=== PATIENT | female | born 1955 | race Caucasian/White ===

== ENCOUNTER 2025-02-26 10:56 | Outpatient (REF) | payer OTHER, SELFPAY ==
--- OUTSIDE RECORDS SUMMARY | 2025-02-26 12:18 | XMS_ITS | Clinical Summary ---
Author Organization [facility] Address [address] [place] [address] Phone Care Team Providers Care Tube Bender Name Role Phone Alvina Berger MD Primary Care Provider Social History Tobacco Use Types Packs/Day Years Used Date Smoking Tobacco: Never Assessed Comments Unknown Sex and Gender Information Value Date Recorded Sex Assigned at Not on file Legal Sex Female 9:03 PM EST Gender Identity Not on file Sexual Orientation Not on file Plan of Treatment Health Maintenance Due Date Last Done Comments Breast Cancer Screening 1957 DTaP,Tdap,and Td Vaccines (1 - Tdap) 1976 Cervical Cancer Screening: HPV 1978 Pneumococcal Vaccine: 50+ Ye ars (1 of 1 - PCV) 2007 Zoster Vaccines (1 of 2) 2007 Colorectal Cancer Screening: Colonoscopy 02/28/2024 Falls Risk Assessment 02/28/2024 Hepatitis C Screening 02/28/2024 Osteoporosis Screening (Bone Density Screening) 02/28/2024 Social Influencers of Health Screening 02/28/2024 COVID-19 Vaccine ( - 2023-2 5 season) 2024 Depression Screening 08/08/2024 Influenza Vaccine (#1) 2025 RSV Immunization Adult Patie nts (1 - 1-dose 75+ series) 2032 HIB Vaccines Aged Out No longer eligi ble based on patient's age to complete this topic HPV Vaccines Aged Out No longer eligi ble based on patient's age to complete this topic Hepatitis A Vaccines Aged Out No long er eligible based on patient's age to complete this topic Hepatitis B Vaccines Aged Out No long er eligible based on patient's age to complete this topic IPV Vaccines Aged Out No longer eligi ble based on patient's age to complete this topic MMR Vaccines Aged Out No longer eligi ble based on patient's age to complete this topic Meningococcal ACWY Vaccine Aged Out N o longer eligible based on patient's age to complete this topic Meningococcal B Vaccine Aged Out No l onger eligible based on patient's age to complete this topic RSV Immunization Patients Un rosendo 20 months Aged Out No longer eligible b ased on patient's age to complete this topic Varicella Vaccines Aged Out No longer eligible based on patient's age to complete this topic Care Teams Tube Bender Relationship Specialty Start Date End Date Alvina Berger MD [address] PCP - General Internal Medicine 10/30/13
--- OUTSIDE RECORDS SUMMARY | 2025-02-26 12:18 | XMS_ITS | Patient Health Record ---
Author Organization [facility] Address [address] [address] Care Team Providers Care Rfid Engineer Name Role Phone VALENTINE ORTIZ, YURI Primary Care Provider Unav ailLOLY Osman Unavailable [phone] Allergies No Known Allergies Reason For Referral No Information Medications Medication SIG (Take, Route, Fr equency, Duration) Notes Start Date End Date Status Multivitamin - 1 tablet Orally Once a day; Duration: 30 day(s) Active Social History Tobacco Use: Social History Observation Description Date Details (start date - stop date) Never Smoker NA - NA Tobacco Use/Smoking Question Answer Notes Are you a nonsmoker Alcohol Screen (Audit-C) Question Answer Notes Did you have a drink contain ing alcohol in the past year? Yes How often did you have a dri nk containing alcohol in the past year? 2 to 4 times a month (2 points) How many drinks did you have on a typical day when you were drinking in the past year? 1 or 2 drinks (0 point) How often did you have 6 or more drinks on one occasion in the past year? Never (0 point) Points 2 Interpretation Negative Vital Signs Temperature 98.0 degrees Fahrenheit 02/12/2025 Blood pressure diastolic 82 mm Hg 02/12/2025 Height 5 ft 2.5 in in 02/12/2025 Blood pressure systolic 144 mm Hg 02/12/2025 Weight 142 lbs 02/12/2025 BMI 25.56 kg/m2 02/12/2025 Encounters Encounter Location Date Provider Diagnosis [facility] [place] [address] [employer] [address] [address] 02/12/2025 LOLY MATOS Encounter for gynecological examination (general) (routine) without abnormal findings Z01.419 and Encounter for screening mammogram for malignant neoplasm of breast Z12.31 Assessments Encounter Date Diagnosis (ICD Code) Assessment Notes Treatment Notes Treatment Clinical Notes Section Notes 02/12/2025 Encounter for gynecological examination (general) (routine) without abnormal findings (ICD-10 - Z01.419) During the visit, the following areas of concern were addressed: Discussed stopping cervical cancer screening as per ASCCP guidelines. Advised continued annual pelvic exams. Patient encouraged to increase her level of exercise. SBE technique encouraged/tau ght. Patient reminded when annual mammogram is due. Patient encouraged to keep colon screening up to date. Advised to see PCP for further evaluation of the rash. 02/12/2025 Encounter for screening mammogram for malignant neoplasm of breast (ICD-10 - Z12.31) Plan Of Treatment Pending Test Test Name Order Date MM Digital Screening Mammogram 3D 2020 MM Digital Screening Mammogram 3D 2021 MM Digital Screening Mammogram 3D 2022 MM Digital Screening Mammogram 3D 2023 MM Digital Screening Mammogram 3D 2024 Next Appt Details Provider Name:LOLY Araujo, 02/18/2026 10:30:00 AM, [address] [facility], [address], [place], [address], Insurance Providers Payer Name Payer Address Payer Phone Subscriber Number Group Number Insured Name Patient Relationship to Insured Coverage Start Date Coverage End Date [facility] [address] [place] [address] [id number] KATHY TERAN Self - patient is the insured Medical (General) History Surgical History Surgery Date(Month/Year) Hospitalization History Reason Date(Month/Year) FACIAL CELLULITIS 2008
--- OUTSIDE RECORDS SUMMARY | 2025-02-26 12:19 | XMS_ITS | Data Portability ---
Author Organization [facility], Main Office Address [address] [facility] [address] [place] [id number] Care Team Providers Care Shroudman Name Role Phone SIENA MORENO [employer] KILEY MARTINS Primary Care Provider [facility] Networking Specialist Assessment Encounter Date Assessment Date Assessment LastModified by Organization Details LastModified Time 02/15/2025 02/15/2025 Discussed with patient the signs/symptom s warranted for a return to office visit and/or an ER visit. Patient understood and agreed with the plan. Not available 02/15/2025 10:26:09 Plan of Treatment Reminders Order Date Submit Date Provider Last Modified By Organization Details Last Modified Time Details Appointments URGENT 2024 11:30A M Jb Cuenca PA-C Not available Not available Not available Lab lipid panel, serum 2024 025 [facility], [address] [place], [address], 01/16/2025 06:07:36 BMP, serum or plasma 2024 025 [facility], [address], [place], [address], 01/16/2025 06:07:35 CBC w/ auto diff 2024 025 [facility], [address], [place], [address], 01/16/2025 06:07:34 TSH, ultra- sensit fanny, serum 2024 025 [facility], [address], [place], [address], 01/16/2025 06:07:36 lipid panel, serum 2022 023 [facility], [address], [address], [place], [address], 04/19/2023 16:10:42 BMP, serum or plasma 2022 023 [facility], [address], [address], [place], [address], 04/19/2023 16:10:41 CBC w/ auto diff 2022 023 [facility], [address], [address], [place], [address], 04/19/2023 16:18:26 TSH, serum or plasma 2022 023 [facility], [address], [address], [place], [address], 04/19/2023 16:10:43 choles terol, total, serum 2021 022 [facility], [address], [address], [place], [address], 04/15/2022 16:44:47 LDL, serum 2021 022 [facility], [address], [address], [place], [address], 04/15/2022 16:44:48 BMP, serum or plasma 2021 022 [facility], [address], [address], [place], [address], 04/15/2022 16:44:46 Referral audiol ogist referr al 2024 025 [email or web address], [address] [place], [address], 01/09/2025 11:26:41 dermat ologis t referr al - rash x 2 month, using triamc inolon e with relief of itchin g but not the rash whih is now spread ing 2021 022 [email or web address] Not available 07/20/2022 10:00:26 gastro entero logist referr al - due for screen ing colono scopy 2021 022 [email or web address] Siena Moreno MD, [address] [facility] [address], [place], [address], 05/06/2022 14:26:29 Procedures colono scopy screen ing (PROC) 2022 023 [email or web address] Not available 01/17/2024 09:15:56 colono scopy proced ure (PROC) 2021 022 [email or web address] Not available 04/15/2022 11:54:53 Surgeries None record ed. Imaging MAMMO, screen ing, bilate ral 2024 025 [email or web address] Not available 01/08/2025 11:31:44 bone densit y 2022 023 [email or web address] [facility], [address] [place], [address], 10/31/2023 11:48:07 MAMMO, screen ing, bilate ral 2022 023 [facility], [address] [place], [address], 09/09/2023 08:22:24 Medication Orders Bactri m DS 800 mg-160 mg tablet 2024 025 [facility] #1972, [address] [facility], [place], [address], 02/15/2025 10:28:26 [email or web address] orlando 2 % topica l ointme nt 2024 025 [facility]acy #1972, [address] [place], [address], 02/15/2025 10:28:26 Bactri m DS 800 mg-160 mg tablet [email or web address]/Pharmacy [facility], [address] [place] [address], [address], 04/19/2023 10:26:14 mupiro orlando 2 % topica l ointme nt [email or web address]/Pharmacy #[facility], [address] [place], [address], 04/19/2023 10:26:08 triamc inolon e aceton ministerio 0.1 % topica l ointme nt [email or web address]/Pharmacy #[facility], [address] [place] [address], [address], 04/19/2023 10:26:19 Patient TargetsNo targets recorded. Patient Instructions Encounter Date Encounter Id Patient Instructions Last Modified By Organization Details Last Modified Time 06/29/2022 [id number] folliculitis: care instructions [email or web address] Not available 06/29/2022 11:06:46 call or return for worsening or concerns [email or web address] Not available 06/29/2022 11:06:59 04/19/2023 [id number] well visit, over 65: care instructions Not available 04/19/2023 10:49:43 preventing falls : care instructions Not available 04/19/2023 10:49:43 medical record request* Not available 04/20/2023 13:51:10 01/08/2025 [id number] hearing loss: care instructions Not available 01/08/2025 11:25:56 medical record request* Not available 01/09/2025 11:11:49 02/15/2025 [id number] folliculitis: care instructions Not available 02/15/2025 10:28:25 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 Referral for Screening for malignant neoplasm of colon due for screening colonoscopy Referring Physician: Alvina Berger, [facility], Encounter Date: 04/15/2022 Medical Specialist Referral for F olliculitis rash x 2 month, using triamcinolone with relief of itching but not the rash whih is now spreading Referring Physician: Lisa Sahu, [facility], Encounter Date: 06/29/2022 Medical Superintendent Referral for Sen sorineural hearing loss of bilateral ears Referring Physician: Kiley Martins, [facility], Encounter Date: 01/08/2025 Results Created Date Observation Date Name Description Value Unit Range Abnormal Flag Note LastModifiedBy Organization Detail LastModifiedTime 04/15/2004/15/2022 BASIC METAB OLIC PANEL glucose 86 mg/dL (70-99 ) Not Available [facility] (Centralized Electronic Ordering - All Locations) Patient Can Go To The Location Of Their Choice, [id number] 04/15/2022 16:44:46 04/15/2004/15/2022 BASIC METAB OLIC PANEL BUN 14 mg/dL (8-23) Not Available [facility] (Centralized Electronic Ordering - All Locations) Patient Can Go To The Location Of Their Choice, [id number] 04/15/2022 16:44:46 04/15/2004/15/2022 BASIC METAB OLIC PANEL creatinine 0.7 mg/dL (0.5-1 .0) Not Available [facility] (Centralized Electronic Ordering - All Locations) Patient Can Go To The Location Of Their Choice, 04/15/2022 16:44:46 04/15/2004/15/2022 BASIC METAB OLIC PANEL sodium 142 mmol/ L (133-1 45) Not Available [facility] (Centralized Electronic Ordering - All Locations) Patient Can Go To The Location Of Their Choice, [id number] 04/15/2022 16:44:46 04/15/2004/15/2022 BASIC METAB OLIC PANEL potassium 4.4 mmol/ L (3.6-5 .2) Not Available [facility] (Centralized Electronic Ordering - All Locations) Patient Can Go To The Location Of Their Choice, 04/15/2022 16:44:46 04/15/2004/15/2022 BASIC METAB OLIC PANEL chloride 101 mmol/ L (98-10 7) Not Available [facility] (Centralized Electronic Ordering - All Locations) Patient Can Go To The Location Of Their Choice, 04/15/2022 16:44:46 04/15/2004/15/2022 BASIC METAB OLIC PANEL bicarbonate 32 mmol/ L (22-29 ) high Not Available [facility] (Centralized Electronic Ordering - All Locations) Patient Can Go To The Location Of Their Choice, 04/15/2022 16:44:46 04/15/2004/15/2022 BASIC METAB OLIC PANEL anion gap 9 (4-17) Not Available [facility] (Centralized Electronic Ordering - All Locations) Patient Can Go To The Location Of Their Choice, 04/15/2022 16:44:46 04/15/2004/15/2022 BASIC METAB OLIC PANEL calcium 10.3 mg/dL (8.6-1 0.5) Not Available [facility] (Centralized Electronic Ordering - All Locations) Patient Can Go To The Location Of Their Choice, 04/15/2022 16:44:46 04/15/2004/15/2022 BASIC METAB OLIC PANEL estimated GFR creatinine 97 mL/mi n/1.7 3_M2 Creat inine based estim ated glome rular filtr ation (eGFR ) in adult s is calcu lated using the Natio nal Kidne y Found ation recom sera d 2020 CKD-E PI equat ion. Estim ates GFR from serum creat inine , age and sex. Not Available [facility] (Centralized Electronic Ordering - All Locations) Patient Can Go To The Location Of Their Choice, 04/15/2022 16:44:46 04/15/2004/15/2022 ERICA STERO L, TOTAL cholesterol, total 175 mg/dL (<200) Not Available [facility] ([facility] Order[facility] - All Locations) Patient Can Go To The Location Of Their Choice, 04/15/2022 16:44:47 04/15/2004/15/2022 LDL ERICA STERO L, DIREC T LDL cholesterol, direct 82 mg/dL (<130) Not Available [facility] ([facility] Ordering - All Locations) Patient Can Go To The Location Of Their Choice, 04/15/2022 16:44:48 04/19/2004/19/2023 BASIC METAB OLIC PANEL glucose 88 mg/dL (70-99 ) Not Available [facility] (Centralized Electronic Ordering - All Locations) Patient Can Go To The Location Of Their Choice, 04/19/2023 16:10:41 04/19/2004/19/2023 BASIC METAB OLIC PANEL BUN 12 mg/dL (8-23) Not Available [facility] (Centralized Electronic Ordering - All Locations) Patient Can Go To The Location Of Their Choice, 04/19/2023 16:10:41 04/19/2004/19/2023 BASIC METAB OLIC PANEL creatinine 0.7 mg/dL (0.5-1 .0) Not Available [facility] (Centralized Electronic Ordering - All Locations) Patient Can Go To The Location Of Their Choice, 04/19/2023 16:10:41 04/19/2004/19/2023 BASIC METAB OLIC PANEL sodium 138 mmol/ L (133-1 45) Not Available [facility] (Centralized Electronic Ordering - All Locations) Patient Can Go To The Location Of Their Choice, 04/19/2023 16:10:41 04/19/2004/19/2023 BASIC METAB OLIC PANEL potassium 4.4 mmol/ L (3.6-5 .2) Not Available [facility] (Centralized Electronic Ordering - All Locations) Patient Can Go To The Location Of Their Choice, 04/19/2023 16:10:41 04/19/2004/19/2023 BASIC METAB OLIC PANEL chloride 102 mmol/ L (98-10 7) Not Available [facility] (Centralized Electronic Ordering - All Locations) Patient Can Go To The Location Of Their Choice, 04/19/2023 16:10:41 04/19/2004/19/2023 BASIC METAB OLIC PANEL bicarbonate 27 mmol/ L (22-29 ) Not Available [facility] ([facility]ized Electronic Ordering - All Locations) Patient Can Go To The Location Of Their Choice, 04/19/2023 16:10:41 04/19/2004/19/2023 BASIC METAB OLIC PANEL anion gap 9 (4-17) Not Available [facility] (Central[facility] Electronic Ordering - All Locations) Patient Can Go To The Location Of Their Choice, 04/19/2023 16:10:41 04/19/2004/19/2023 BASIC METAB OLIC PANEL calcium 10.0 mg/dL (8.6-1 0.5) Not Available [facility] ([facility] Ordering - All Locations) Patient Can Go To The Location Of Their Choice, 04/19/2023 16:10:41 04/19/2004/19/2023 BASIC METAB OLIC PANEL estimated GFR creatinine 94 mL/mi n/1.7 3_M2 Creat inine based estim ated glome rular filtr ation (eGFR ) in adult s is calcu lated using the Natio nal Kidne y Found ation recom sera d 2020 CKD-E PI equat ion. Estim ates GFR from serum creat inine , age and sex. Not Available [facility] (Centralized Electronic Ordering - All Locations) Patient Can Go To The Location Of Their Choice, 04/19/2023 16:10:41 04/19/2004/19/2023 LIPID PANEL cholesterol, total 190 mg/dL (<200) Not Available [facility] ([facility] Order[facility] - All Locations) Patient Can Go To The Location Of Their Choice, 04/19/2023 16:10:42 04/19/2004/19/2023 LIPID PANEL triglyceride 96 mg/dL (<150) Not Available [facility] ([facility] - All Locations) Patient Can Go To The Location Of Their Choice, 04/19/2023 16:10:42 04/19/2004/19/2023 LIPID PANEL HDL chol 73 mg/dL (>39) Not Available [facility] (Centralized Electronic Ordering - All Locations) Patient Can Go To The Location Of Their Choice, 04/19/2023 16:10:42 04/19/2004/19/2023 LIPID PANEL LDL cholesterol, calculated 98 mg/dL (0-130 ) Not Available [facility] (Centralized Electronic Ordering - All Locations) Patient Can Go To The Location Of Their Choice, 04/19/2023 16:10:42 04/19/2004/19/2023 LIPID PANEL non HDL cholesterol (calc) 117 mg/dL (<160) Not Available [facility] ([facility] Ordering - All Locations) Patient Can Go To The Location Of Their Choice, 04/19/2023 16:10:42 04/19/2004/19/2023 TSH WITH REFLE X TO FT4 TSH 1.65 uIU/m L (0.4-4 .2) Not Available [facility] ([facility]ized Electronic Ordering - All Locations) Patient Can Go To The Location Of Their Choice, 04/19/2023 16:10:43 04/19/2004/19/2023 COMPL ETE CBC WITH DIFF WBC 6.5 K/mm3 (4.0-1 1.0) Not Available [facility] ([facility]ized Electronic Ordering - All Locations) Patient Can Go To The Location Of Their Choice, 04/19/2023 16:18:25 04/19/2004/19/2023 COMPL ETE CBC WITH DIFF RBC 4.39 M/mm3 (4.20- 5.40) Not Available [facility] ([facility] Electronic Ordering - All Locations) Patient Can Go To The Location Of Their Choice, 04/19/2023 16:18:25 04/19/2004/19/2023 COMPL ETE CBC WITH DIFF HGB 13.0 gm/dL (11.7- 15.5) Not Available [facility] ([facility] Electronic Ordering - All Locations) Patient Can Go To The Location Of Their Choice, 04/19/2023 16:18:25 04/19/2004/19/2023 COMPL ETE CBC WITH DIFF HCT 40.8 % (35.7- 45.8) Not Available [facility] ([facility]ized Electronic Ordering - All Locations) Patient Can Go To The Location Of Their Choice, 04/19/2023 16:18:25 04/19/2004/19/2023 COMPL ETE CBC WITH DIFF MCV 92.9 fL (80.0- 100.0) Not Available [facility] ([facility]ized Electronic Ordering - All Locations) Patient Can Go To The Location Of Their Choice, 04/19/2023 16:18:04/19/2004/19/2023 COMPL ETE CBC WITH DIFF MCH 29.6 pg (27.0- 34.0) Not Available [facility] ([facility]ized Electronic Ordering - All Locations) Patient Can Go To The Location Of Their Choice, 04/19/2023 16:18:04/19/2004/19/2023 COMPL ETE CBC WITH DIFF MCHC 31.9 g/dL (33.0- 37.0) low Not Available [facility] ([facility] Ordering - All Locations) Patient Can Go To The Location Of Their Choice, 04/19/2023 16:18:04/19/2004/19/2023 COMPL ETE CBC WITH DIFF plt 334 K/mm3 (150-4 60) Not Available [facility] ([facility]ized Electronic Ordering - All Locations) Patient Can Go To The Location Of Their Choice, 04/19/2023 16:18:04/19/2004/19/2023 COMPL ETE CBC WITH DIFF RDW-SD 43.2 fL (<47.0 ) Not Available [facility] ([facility]ized Electronic Ordering - All Locations) Patient Can Go To The Location Of Their Choice, 04/19/2023 16:18:04/19/2004/19/2023 COMPL ETE CBC WITH DIFF MPV 9.4 fL (9.4-1 2.4) Not Available [facility] ([facility]ized Electronic Ordering - All Locations) Patient Can Go To The Location Of Their Choice, 04/19/2023 16:18:04/19/2004/19/2023 COMPL ETE CBC WITH DIFF automated NRBC 0.0 #/100 _WBC' s Not Available [facility] ([facility]ized Electronic Ordering - All Locations) Patient Can Go To The Location Of Their Choice, 04/19/2023 16:18:04/19/2004/19/2023 COMPL ETE CBC WITH DIFF abs. NRBC 0.0 K/mm3 Not Available [facility] ([facility]ized Electronic Ordering - All Locations) Patient Can Go To The Location Of Their Choice, 04/19/2023 16:18:04/19/2004/19/2023 COMPL ETE CBC WITH DIFF neut # 3.6 K/mm3 (1.3-7 .0) Not Available [facility] ([facility]ized Electronic Ordering - All Locations) Patient Can Go To The Location Of Their Choice, 04/19/2023 16:18:25 04/19/2004/19/2023 COMPL ETE CBC WITH DIFF lymph # 2.3 K/mm3 (0.8-3 .1) Not Available [facility] ([facility] Electronic Ordering - All Locations) Patient Can Go To The Location Of Their Choice, 04/19/2023 16:18:04/19/2004/19/2023 COMPL ETE CBC WITH DIFF mono# 0.5 K/mm3 (0.4-0 .9) Not Available [facility] ([facility] Electronic Ordering - All Locations) Patient Can Go To The Location Of Their Choice, 04/19/2023 16:18:04/19/2004/19/2023 COMPL ETE CBC WITH DIFF eo # 0.0 K/mm3 (0.0-0 .4) Not Available [facility] ([facility] Ordering - All Locations) Patient Can Go To The Location Of Their Choice, 04/19/2023 16:18:04/19/2004/19/2023 COMPL ETE CBC WITH DIFF baso # 0.1 K/mm3 (0.0-0 .1) Not Available [facility] ([facility] Ordering - All Locations) Patient Can Go To The Location Of Their Choice, 04/19/2023 16:18:04/19/2004/19/2023 COMPL ETE CBC WITH DIFF abs. imm gran 0.1 K/mm3 Not Available [facility] ([facility] - All Locations) Patient Can Go To The Location Of Their Choice, 04/19/2023 16:18:04/19/2004/19/2023 COMPL ETE CBC WITH DIFF neut 54.8 % (44-76 ) Not Available [facility] ([facility]ized Electronic Ordering - All Locations) Patient Can Go To The Location Of Their Choice, 04/19/2023 16:18:04/19/2004/19/2023 COMPL ETE CBC WITH DIFF lymph 35.2 % (15-43 ) Not Available [facility] ([facility]ized Electronic Ordering - All Locations) Patient Can Go To The Location Of Their Choice, 04/19/2023 16:18:25 04/19/2004/19/2023 COMPL ETE CBC WITH DIFF monocyte 8.0 % (4.5-1 0.5) Not Available [facility] ([facility] Ordering - All Locations) Patient Can Go To The Location Of Their Choice, 04/19/2023 16:18:04/19/2004/19/2023 COMPL ETE CBC WITH DIFF eo 0.0 % (0-6) Not Available [facility] ([facility] Ordering - All Locations) Patient Can Go To The Location Of Their Choice, 04/19/2023 16:18:04/19/2004/19/2023 COMPL ETE CBC WITH DIFF baso 1.1 % (0-2) Not Available [facility] ([facility] Ordering - All Locations) Patient Can Go To The Location Of Their Choice, 04/19/2023 16:18:04/19/2004/19/2023 COMPL ETE CBC WITH DIFF imm gran 0.9 % Not Available [facility] ([facility] Ordering - All Locations) Patient Can Go To The Location Of Their Choice, 04/19/2023 16:18:25 01/16/2001/15/2025 CBC WITH DIFFE RENTI AL/PL ATELE T WBC 6.4 x10e3 /uL 3.4-10 .8 normal Not Available [facility] ([facility]) [address] [place], [address], 01/16/2025 06:07:34 01/16/2001/15/2025 CBC WITH DIFFE RENTI AL/PL ATELE T RBC 4.28 x10e6 /uL 3.77-5 .28 normal Not Available [facility] ([facility]) [address] [facility], [place], [address], 01/16/2025 06:07:34 01/16/20 25 01/15/2025 CBC WITH DIFFE RENTI AL/PL ATELE T hemoglobin 12.9 g/dL 11.1-1 5.9 normal Not Available [facility] ([facility]) [address] [place], [address], 01/16/2025 06:07:34 01/16/20 25 01/15/2025 CBC WITH DIFFE RENTI AL/PL ATELE T hematocrit 39.4 % 34.0-4 6.6 normal Not Available [facility] ([facility]) [address] [facility], [place], [address], 01/16/2025 06:07:34 01/16/20 25 01/15/2025 CBC WITH DIFFE RENTI AL/PL ATELE T MCV 92 fL 79-97 normal Not Available [facility] ([facility]) [address] [facility], [place], [address], 01/16/2025 06:07:34 01/16/20 25 01/15/2025 CBC WITH DIFFE RENTI AL/PL ATELE T MCH 30.1 pg 26.6-3 3.0 normal Not Available [facility] ([facility]) [address] [place], [address], 01/16/2025 06:07:34 01/16/20 25 01/15/2025 CBC WITH DIFFE RENTI AL/PL ATELE T MCHC 32.7 g/dL 31.5-3 5.7 normal Not Available [facility] ([facility]) [address] [place], [address], 01/16/2025 06:07:34 01/16/20 25 01/15/2025 CBC WITH DIFFE RENTI AL/PL ATELE T RDW 12.5 % 11.7-1 5.4 Not Available [facility] ([facility]) [address] [place], [address], 01/16/2025 06:07:34 01/16/20 25 01/15/2025 CBC WITH DIFFE RENTI AL/PL ATELE T platelets 321 x10e3 /uL 150-45 0 normal Not Available [facility] ([facility]) [address] [facility], [place], [address], 01/16/2025 06:07:34 01/16/20 25 01/15/2025 CBC WITH DIFFE RENTI AL/PL ATELE T neutrophils 51 % not estab. normal Not Available [facility] ([facility]) [address] [facility], [place], [address], 01/16/2025 06:07:34 01/16/20 25 01/15/2025 CBC WITH DIFFE RENTI AL/PL ATELE T lymphs 38 % not estab. normal Not Available [facility] ([facility]) [address] [facility], [place], [address], 01/16/2025 06:07:34 01/16/20 25 01/15/2025 CBC WITH DIFFE RENTI AL/PL ATELE T monocytes 8 % not estab. normal Not Available [facility] ([facility]) [address] [facility], [place], [address], 01/16/2025 06:07:34 01/16/20 25 01/15/2025 CBC WITH DIFFE RENTI AL/PL ATELE T eos 2 % not estab. normal Not Available [facility] ([facility]) [address] [place], [address], 01/16/2025 06:07:34 01/16/20 25 01/15/2025 CBC WITH DIFFE RENTI AL/PL ATELE T basos 1 % not estab. 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 0 normal Not Available [facility] ([facility]) [address] [facility], [place], [address], 01/16/2025 06:07:34 01/16/20 25 01/15/2025 CBC WITH DIFFE RENTI AL/PL ATELE T lymphs (absolute) 2.5 x10e3 /uL 0.7-3. 1 normal Not Available [facility] ([facility]) [address] [place], [address], 01/16/2025 06:07:34 01/16/20 25 01/15/2025 CBC WITH DIFFE RENTI AL/PL ATELE T monocytes(ab solute) 0.5 x10e3 /uL 0.1-0. 9 normal Not Available [facility] ([facility]) [address] [place], [address], 01/16/2025 06:07:34 01/16/20 25 01/15/2025 CBC WITH DIFFE RENTI AL/PL ATELE T eos (absolute) 0.1 x10e3 /uL 0.0-0. 4 normal Not Available [facility] ([facility]) [address] [place], [address], 01/16/2025 06:07:34 01/16/20 25 01/15/2025 CBC WITH DIFFE RENTI AL/PL ATELE T baso (absolute) 0.1 x10e3 /uL 0.0-0. 2 normal Not Available [facility] ([facility]) [address] [place], [address], 01/16/2025 06:07:34 01/16/20 25 01/15/2025 CBC WITH DIFFE RENTI AL/PL ATELE T immature granulocytes 0 % not estab. Not Available [facility] ([facility]) [address] [facility], [place], [address], 01/16/2025 06:07:34 01/16/20 25 01/15/2025 CBC WITH DIFFE RENTI AL/PL ATELE T immature grans (abs) 0.0 x10e3 /uL 0.0-0. 1 Not Available [facility] ([facility]) [address] [facility], [place], [address], 01/16/2025 06:07:34 01/16/20 25 01/15/2025 CBC WITH DIFFE RENTI AL/PL ATELE T NRBC JEWELRY STORE MANAGER Not Available [facility] ([facility]) [address] [facility], [place], [address], 01/16/2025 06:07:34 01/16/20 25 01/15/2025 CBC WITH DIFFE RENTI AL/PL ATELE T hematology comments: JEWELRY STORE MANAGER Not Available [facility] ([facility]) [address] [facility], [place], [address], 01/16/2025 06:07:34 01/16/20 25 01/15/2025 BASIC METAB OLIC PANEL (8) glucose 93 mg/dL 70-99 normal Not Available [facility] ([facility]) [address] [facility], [place], [address], 01/16/2025 06:07:35 01/16/20 25 01/15/2025 BASIC METAB OLIC PANEL (8) BUN 9 mg/dL 8-27 normal Not Available [facility] ([facility]) [address] [facility] [place], [address], 01/16/2025 06:07:35 01/16/20 25 01/15/2025 BASIC METAB OLIC PANEL (8) creatinine 0.73 mg/dL 0.57-1 .00 normal Not Available [facility] ([facility]) [address] [facility] [place], [address], 01/16/2025 06:07:35 01/16/20 25 01/15/2025 BASIC METAB OLIC PANEL (8) eGFR 90 mL/mi n/1.7 3 >59 normal Not Available [facility] ([facility]) [address] [place], [address], 01/16/2025 06:07:35 01/16/20 25 01/15/2025 BASIC METAB OLIC PANEL (8) BUN/creatini ne ratio 12 12-28 normal Not Available [facility] ([facility]) [address] [place], [address], 01/16/2025 06:07:35 01/16/20 25 01/15/2025 BASIC METAB OLIC PANEL (8) sodium 139 mmol/ L 134-14 4 normal Not Available [facility] ([facility]) [address] [place], [address], 01/16/2025 06:07:35 01/16/20 25 01/15/2025 BASIC METAB OLIC PANEL (8) potassium 4.1 mmol/ L 3.5-5. 2 normal Not Available [facility] ([facility]) [address] [place], [address], 01/16/2025 06:07:35 01/16/20 25 01/15/2025 BASIC METAB OLIC PANEL (8) chloride 101 mmol/ L 96-106 normal Not Available [facility] ([facility]) [address] [place], [address], 01/16/2025 06:07:35 01/16/20 25 01/15/2025 BASIC METAB OLIC PANEL (8) carbon dioxide, total 23 mmol/ L 20-29 normal Not Available [facility] ([facility]) [address] [place], [address], 01/16/2025 06:07:35 01/16/20 25 01/15/2025 BASIC METAB OLIC PANEL (8) calcium 9.8 mg/dL 8.7-10 .3 normal Not Available [facility] ([facility]) [address] [place], [address], 01/16/2025 06:07:35 01/16/20 25 01/15/2025 LIPID PANEL cholesterol, total 188 mg/dL 100-19 9 normal Not Available [facility] ([facility]) [address] [place], [address], 01/16/2025 06:07:36 01/16/20 25 01/15/2025 LIPID PANEL triglyceride s 92 mg/dL 0-149 normal Not Available [facility] ([facility]) [address] [place], [address], 01/16/2025 06:07:36 01/16/20 25 01/15/2025 LIPID PANEL HDL cholesterol 77 mg/dL >39 normal Not Available [facility] ([facility]) [address] [place], [address], 01/16/2025 06:07:36 01/16/20 25 01/15/2025 LIPID PANEL VLDL cholesterol curly 16 mg/dL 5-40 Not Available [facility] ([facility]) [address] [place], [address], 01/16/2025 06:07:36 01/16/20 25 01/15/2025 LIPID PANEL LDL chol calc ([facility]) 95 mg/dL 0-99 Not Available [facility] ([facility]) [address] [place], [address], 01/16/2025 06:07:36 01/16/20 25 01/15/2025 LIPID PANEL LDL calc comment: [employer]ORE MA[employer]GER Not Available [facility] ([facility]) [address] [place], [address], 01/16/2025 06:07:36 01/16/20 25 01/15/2025 TSH RFX ON ABNOR MAL TO FREE T4 TSH 0.950 uIU/m L 0.450- 4.500 normal Not Available [facility] ([facility]) [address] [facility], [place], [address], 01/16/2025 06:07:36 09/09/19 24 09/06/2023 MAMMO , scree greer, bilat eral No observ ation record ed. [email or web address] [facility] [address] [place] [address] , [place], [address], 09/09/2023 08:44:09 02/28/20 24 02/28/2024 bone densi ty No observ ation record ed. [email or web address] Not Available 03/01 13:52:03 Result Notes None recorded. Problems No Known Problems Procedures Surgical History Date Name Laterality Status Provider Name and Address Organization Details Recorded Time 06/06/20 24 Date of Last Colonoscopy completed Victoria Angel [facility] 01/11/2025 12:26:09 06/06/20 24 Colonoscopy completed Victoria Angel [facility] 01/11/2025 12:25:50 09/06/19 24 Most Recent Mammogram completed Verona Bowling [facility] 09/09/2023 08:44:05 06/23/20 21 Mammogram both breasts completed Lizzy Rivas [facility] 07/22/2021 15:13:00 09/26/19 19 Date of Last Pap Smear completed Tiffany Boyle MA [facility] 05/02/2019 09:09:03 Imaging Results None recorded. Procedure Notes None recorded. Medical Equipment None Reported. Allergies Allergen ID Allergen Name Allergen Category Reaction Reaction Severity Criticality Documentation Date Start Date Code Code System Note Provider Name and Address Organization Details Recorded Time 3442 Product containin g penicilli n (product) medicatio n Not available Not available Not available 02/19/20142013 72675 6253 SNOMED REACT ION: HIVES ; COMME NT: RECOR DED 01/03 4:04P M BY ALVINA FORTE MD, OFFIC E VISIT ; Not Available [facility] 4 09:43:10 32292 Lanacane with Aloe medicatio n rash Not available Not available 02/15/2025 [id number] UNK Jillian Sanchez MA null, [facility] 5 10:20:49 Medications Name Sig Start Date Stop Date Status Note LastModified by Organization Details LastModified Time sulfameth oxazole 800 mg-trimet hoprim 160 mg tablet TAKE 1 TABLET BY MOUTH EVERY 12 HOURS DIRECTED FOR 7 DAYS active Not Available Not Available No t Available triamcino lone acetonide 0.1 % topical ointment APPLY TO ARMS, AND TRUNK TWICE A DAY NEEDED FLARES, DECREASE SYMPTOMS IMPROVE 04/19 completed Not Available Not Available Not Available mupirocin 2 % topical ointment APPLY A SMALL AMOUNT TO AFFECTED AREA 3 TIMES A DAY active Not Available Not Available No t Available Multi-Day Plus Minerals 1 po qd active RECORDED 12/29/19 13 3:29PM BY TIFFANY BOYLE, OFFICE VISIT;TO MARQUEZ Not Available Not Available Not Available Vitals Date Recorded Body height Body mass index (BMI) Body weight Heart rate Oxygen saturation Oxygen saturation in Arterial blood by Pulse oximetry Systolic And Diastolic Provider Name and Address Organization Details Last Updated DateTime 5 162.56 cm 24.7 kg/m2 10723.3 g 65 /min 98 % 98 % 152/84 mm[Hg] KILEY MARTINS MD [address] [facility] [address], [facility] [place], [address], [facility] 5 11:08:20 Date Recorded Systolic And Diastolic Provider Name and Address Organization Details Last Updated DateTime 01/08/2025 125/79 mm[Hg] Tiffany Boyle MA [facility] 01/08/2025 11:17:47 Date Recorded Body height Body mass index (BMI) Body weight Heart rate Oxygen saturation Oxygen saturation in Arterial blood by Pulse oximetry Body temperature Systolic And Diastolic Systolic And Diastolic Provider Name and Address Organization Details Last Updated DateTime 5 162.56 cm 25.1 kg/m2 94918.2 9 g 69 /min 99 % 99 % 98 [degF] 146/81 mm[Hg] 130/70 mm[Hg] Jillian Sanchez MA [facility] 5 10:21:52 Date Recorded Body height Body mass index (BMI) Body weight Oxygen saturation Oxygen saturation in Arterial blood by Pulse oximetry Heart rate Body temperature Systolic And Diastolic Provider Name and Address Organization Details Last Updated DateTime 2 162.56 cm 24.4 kg/m2 04948.5 2 g 99 % 99 % 66 /min 97.7 [degF] 122/80 mm[Hg] Tiffany Boyle MA [facility] 2 10:41:22 Date Recorded Body height Body mass index (BMI) Body weight Oxygen saturation Oxygen saturation in Arterial blood by Pulse oximetry Heart rate Body temperature Systolic And Diastolic Provider Name and Address Organization Details Last Updated DateTime 3 162.56 cm 24 kg/m2 49652.9 3 g 99 % 99 % 71 /min 98.3 [degF] 122/75 mm[Hg] T[facility]le [facility] 3 10:24:55 Date Recorded Body height Body mass index (BMI) Body weight Heart rate Oxygen saturation Oxygen saturation in Arterial blood by Pulse oximetry Body temperature Systolic And Diastolic Provider Name and Address Organization Details Last Updated DateTime 2 162.56 cm 24.7 kg/m2 57640.3 g 72 /min 99 % 99 % 95.18 [degF] 145/76 mm[Hg] Eliana Mosquera MA [facility] 2 10:47:35 Social History Question Answer Notes LastModified by Organizat ion Details LastModified Time Tobacco Smoking Status [facility]2015 16:28:16 Is Blood Transfusion Acceptable In An Emergency? Yes [email or web address] Information not available 01/15/2016 What Is Your Level Of Caffeine Consumption? Occasional Information not available 01/10/2015 What Type Of Diet Are You Following? REGULAR [email or web address] Information not available 01/10/2015 Live Alone Or With Others? Alone [email or web address] Information not available 01/10/2015 Do You Take Precautions To Prevent Distracted Driving? Yes [email or web address] Information not available 01/15/2016 How Often Do You Need To Have Someone Help You When You Read Instructions, Pamphlets, Or Other Written Material From Your Doctor Or Pharmacy? Sometimes [email or web address] Information not available 01/15/2016 Have You Served In The ? No [email or web address] Information not available 05/02/2019 Have You Or Anyone In Your Household Had Any Of The Following Symptoms In The Last 14 Days: Sore Throat, Cough, Chills, Body Aches For Unknown Reasons, Shortness Of Breath For Unknown Reasons, Loss Of Smell, Loss Of Taste, Fever At Or Greater Than 100 Degrees Fahrenheit? No [email or web address] Information not available 11/12/2020 Are You Or Anyone In Your Household A Health Care Provider Or Emergency Responder? No [email or web address] Information not available 11/12/2020 To The Best Of Your Knowledge Have You Been In Close Proximity To Any Individual Who Tested Positive For COVID-19? No [email or web address] Information not available 11/12/2020 *AWV ONLY* Are You Presently Prescribed Opioid Medication By PCP Or Specialist? If YES -Provider Assess The Benefit For Other, Non-opioid Pain Therapies Instead, Even If The Patient Does Not Have OUD But Is Possibly At Risk. No Information not available 04/15/2022 Have You Recently Traveled To A COVID-19 High Risk Area Or Gathering In The Last 10 Days? No [email or web address] Information not available 11/12/2020 What Was The Date Of Your Most Recent Tobacco Screening? 01/08/2025 Information not available 01/08/2025 How Many Children Do You Have? 0 [email or web address] Information not available 01/10/2015 What Is Your Relationship Status? Other Boyfriend 37 Years [email or web address] Information not available 01/15/2016 Seat Belts Used Routinely Yes [email or web address] Information not available 01/10/2015 Smoke Alarm In Home Yes [email or web address] Information not available 01/10/2015 General Stress Level Medium [email or web address] Information not available 01/10/2015 Do You Use Sunscreen Routinely? Yes [email or web address] Information not available 01/10/2015 Sex: Unknown Functional Status Question Answer Note LastModified by Organizat ion Details LastModified Time What is your level of alcohol consumption? Occasional beer on weekened Information not available 05/02/2019 Do you or have you ever used smokeless tobacco? Never used smokeless tobacco Information not available 05/02/2019 Are you currently employed? Yes [email or web address] Information not available 01/10/2015 Are you able to walk? YESWOREST [email or web address] Information not available 04/15/2022 Are you able to care for yourself? Yes [email or web address] Information not available 01/10/2015 Do you or have you ever used e-cigarettes or vape? Never used electronic cigarettes [email or web address] Information not available 05/02/2019 What is your exercise level? Moderate hockey,[employer],Skati ng [email or web address] Information not available 04/15/2022 Mental Status None recorded. Family History Relationship Description Onset Age of this Age Resolved Age Notes LastModified by Organization Details LastModified Time Mother Carcinoma in situ of breast [email or web address] Not available 01/10 16:27:12 Brother Multiple sclerosis [email or web address] Not available 04/19 10:27:08 Notes:No FH of colon cancer Medical History No medical history recorded. Gynecological History Statement/Question Response Date of Last Pap Smear 09/26/2018 Date of Last Colonoscopy 06/06/2024 Most Recent Mammogram 09/06/2023 Obstetrics History GPAL:G 0 P 0 0 0 0 Immunizations Vaccine Type Date Status Note Provider Name and Address Organization Details Recorded Time COVID-19, mRNA, LNP-S, PF, 100 mcg/0.5mL dose or 50 mcg/0.25mL dose 12/13/19 21 completed UMAIR Ramsey [facility] 04/15/2022 10:42:36 COVID-19, mRNA, LNP-S, PF, 100 mcg/0.5mL dose or 50 mcg/0.25mL dose 01/09/20 21 completed UMAIR Ramsey [facility] 04/15/2022 10:43:02 COVID-19, mRNA, LNP-S, PF, 100 mcg/0.5mL dose or 50 mcg/0.25mL dose 07/30/20 21 completed UMAIR Noble [facility] 04/30/2022 09:53:16 COVID-19, mRNA, LNP-S, PF, 100 mcg/0.5mL dose or 50 mcg/0.25mL dose 01/08/20 22 completed UMAIR Ramsey, [facility] 04/15/2022 10:43:57 Influenza, high-dose, trivalent, PF 05/25/20 24 completed Not Available [facility] 02/15/2025 10:15:15 COVID-19, mRNA, LNP-S, PF, 50 mcg/0.5 mL 05/12/20 23 completed Not Available [facility] 02/15/2025 10:15:15 COVID-19, mRNA, LNP-S, PF, carlos-sucrose, 30 mcg/0.3 mL 05/17/20 24 completed Not Available [facility] 02/15/2025 10:15:15 COVID-19, mRNA, LNP-S, bivalent, PF, 50 mcg/0.5 mL or 25mcg/0.25 mL dose 09/02/19 23 completed Not Available [facility] 02/15/2025 10:15:15 Tdap 12/18/19 11 completed Not Available [facility] 02/19/2014 13:41:45 Influenza, split virus, quadrivalent, PF 04/15/20 22 cancelled patient objection Alvina reyes, [facility] 04/15/2022 11:07:21 Td (adult), 2 Lf tetanus toxoid, preservative free, adsorbed 04/15/20 22 completed Alvina reyes, [facility] 04/15/2022 11:07:21 Past Encounters Encounter ID Performer Location Encounter Start Date Encounter Closed Date Diagnosis/Indication Diagnosis SNOMED-CT Code Diagnosis ICD10 Code Diagnosis Note [id number] autoEComm erce [address] [facility], [address] [place] [address] 12/17/2010 00:00:00 [id number] autoEComm erc [address] [facility], [address] [place] [address] 12/23/2011 00:00:00 [id number] autoEComm erce [address] [facility],[place] [address] [place] [address] 12/28/2012 00:00:00 [id number] autoEComm erce [address] [facility] [address] [place] [address] 01/03/2014 00:00:00 [id number] Alvina alexandre MD Main Office [address] [place] [address] 01/10/2015 16:12:19 01/10/2015 16:51:53 Adult health examination 387798017 all screening is utd, pt is active, eats well Pain 30663828 left SI joint tpt o make appt with chiropract or Pain of sa croiliac joint 180358012 chirppract or or PT pt to decide [id number] Alvina alexandre MD Main Office [address] [place] [address] 01/15/2016 14:21:33 01/15/2016 15:15:54 Adult health examination 620737358 Z00.00 all screening is utd, pt is active, eats well Pain in coccyx 58069334 M53.3 mulitple falls, ? SI pain, pt to see Kori for eval [id number] Alvina alexandre MD Main Office [address] [address] [place] [address] 01/27/2017 14:20:52 01/27/2017 15:04:37 Adult health examination 458500024 Z00.00 all screening is utd, pt is active, eats well continue vitamin D and calcium [id number] Alvina alexandre MD Main Office [address] [place] [address] 04/05/2018 08:42:38 04/05/2018 09:43:15 Adult health examination 505347959 Z00.00 all screening is utd, pt is active, eats well continue vitamin D and calcium will ocnsider shingles vaccine, refuses flu shota nd will get labs below chol great in 2012 LDL 65 Osteoarthr itis of joint of hand 11856050 M19.041 tylenol prn [id number] Alvina alexandre MD Main Office [address] [facility] [address] [place] [address] 05/02/2019 08:45:13 05/02/2019 09:31:53 Adult health examination 118325353 Z00.00 all screening is utd, pt is active, eats well continue vitamin D and calcium will consider shingles vaccine, considerin g flu shotchol great in 2013 LDL 65 Menopause present 963453 006 N95.1 never had bone density will get baseline, is active and on vit D and calcium [id number] Alvina alexandre MD Main Office [address] [address] [place] [address] 11/12/2020 10:01:58 11/12/2020 10:58:14 Adult health examination 783530621 Z00.00 pt will get the covid vaccine, she is doing well. continue Vit D and add 500mg of calcium, bone density at age 67 (insurance not covering before) and not interested in labs. [id number] Alvina alexandre MD Main Office [address] [address] [place] [address] 04/15/2022 10:28:46 04/15/2022 11:18:19 Adult health examination 374959196 Z00.00 pt is doing well, seh will arrange her colonoscoy for next year, utd on mammo and does not want flu shot but will look into the covid booster. Needs infl uenza immunization 644044828 Z23 not interested in flu shot Requires a tetanus booster 170460667 Z23 got today Screening for malignant neoplasm of colon 633820597 Z12.11 pt will arrange Hypercholesterolemia 136 70929 E78.00 check nonfasting Fatigue 41085620 R53.83 [id number] Salo Mckeon MD Main Office [address] [facility] [address] [place] [address] 06/29/2022 10:40:49 06/29/2022 11:10:53 Folliculitis 94553503 L73.9 will tx for folliculit is. Bactrim DS BID x 7 days, mupirocin ointment, may use triamcinol one as needed for itching. Keep area clean and dry. Will refer to derm for further eval if needed. Call/ return for worsening sx or concerns. Eruption 159220236 R21 [id number] KILEY MARTINS MD Main Office [address] [facility] [address] [facility] [place] [address] 04/19/2023 10:16:30 04/19/2023 10:54:21 Adult health examination 078114386 Z00.00 Health Maintenanc e FemaleA) Patient was counseled on healthy diet, exercise and nutrition due to BMI of 24. B) ScreeningL ast Mammogram: start at age 50 stop at 74Date: 06/23/2021 Result: BIRADS-2Ne xt: DUE Last Pap smear: aged outDate: Results : ???Next: was two years ago, will try to obtain results Last Colonoscop y: start at age 45-75Date: last was in 2013Result : normalNext : DUE Last DEXA scan:Date: due at 67Result: ??? C) Vaccines:I nfluenza: declined at this visitTdAP: 04/15/2022Zo ster: orderedPCV 20: orderedCOV ID: 12/12/2020, 01/08/2021, 07/30/2021 , 01/07/2022 D) Routine blood work orderedE) Updated patient's history RTC in one year for annual exam or sooner if any acute complaints Screening for malignant neoplasm of breast 016356360 Z12.39 Screening for malignant neoplasm of colon 640040470 Z12.11 Fatigue 93420351 R53.83 Z00.00 Hyperlipidemia 02955796 E78.5 Z00.00 Varicella vaccination 68 276246 Z23 Administra tion of pneumococcal vaccine 34749136 Z23 Bone density finding 385 023063 M85.89 [id number] KILEY MARTINS MD Main Office [address] [facility] [address] [facility] [place] [address] 01/08/2025 10:59:03 01/08/2025 11:31:44 General examination of patient 074159468 Z00.00 Health Maintenanc e FemaleA) Patient was counseled on healthy diet, exercise and nutrition due to BMI of 24.7 B) ScreeningL ast Mammogram: start at age 50 stop at 76Date: 09/06/2023 esult: BIRADS-1Ne xt: 02/2025 Last Pap smear: aged out Last Colonoscop y: start at age 45-75Date: last was in 2013Result : normalNext : just had it 06/06/2024 Dr. Moreno, will request Last DEXA scan:Date: 02/28/2024 esult: osteopenia Next: 02/2026 C) Vaccines:I nfluenza: 05/25/2024 TdAP: 04/15/2022Zo ster: ordered, not performed, remindedPC V20: ordered, not performed, remindedCO VID: 12/12/2020, 01/08/2021, 07/30/2021 , 01/07/2022, 05/12/2023, 05/17/2024 D) Routine blood work orderedE) Updated patient's history RTC in one year for annual exam or sooner if any acute complaints Fatigue 49403494 R53.83 Z00.00 Hyperlipidemia 42221106 E78.5 Z00.00 - ASCVD score of 4.4%- lipid panel 04/2023: cholestero l-190, triglyceri de-96, HDL-73, LDL-98 Pt counselled on:- Eat a heart-heal thy diet - Choose healthy fats. Avoid saturated fats that are found primarily in red meat, howard, sausage, and full-fat dairy products. Advised to choose lean proteins like chicken, turkey, and fish when possible. Switch to low-fat or fat-free dairy. And use monounsatu rated fats like olive and canola oil for cooking. - Cut out the trans fats. Trans fats are found in fried food and processed foods, like cookies, crackers, and other snacks. - Eat more omega-3s. Counseled on eating more fish, including salmon, mackerel, chapa ,nuts and seeds, like walnuts and flax seeds. - Increase your fiber intake. By eating more oats, brain, fruits, beans, and vegetables , can lower your LDL cholestero l levels. - Eat more fruits and veggies. Screening for malignant neoplasm of breast 213959768 Z12.39 Screening for malignant neoplasm of colon 443060451 Z12.11 Sensorineu ral hearing loss of bilateral ears 531685471 H90.3 - occurs on certain occasions- pt referred for hearing testing [id number] Salo Mckeon MD Main Office [address] [facility] [address] [facility] [place] [address] 02/15/2025 10:14:10 02/15/2025 10:30:41 Folliculitis 83070730 L73.9 will tx for folliculit is. Bactrim DS BID x 7 days, mupirocin ointment, may use triamcinol one as needed for itching. Keep area clean and dry. Call/ return for worsening sx or concerns. Health Concerns Section Related Observation LastModified by Organization Detai ls LastModified Time None Recorded Concern Status LastModified by Organization Details LastModified Time None Recorded Advance Directives Directive None Recorded Payers Insurance Date Sequence Insurance Name Policy Number Policy Villegas Covered Member ID Villegas Member ID Guarantor Name 01/08/2025 1 [place] [id number] Talia P Kearing [id number] Talia P Kearing 01/08/2025 1 [facility] [place] [id number] Talia P Kearing [id number] Talia P Kearing 01/08/2025 1 [employer] (PPO) Talia P Kearing [id number] Talia P Kearing 01/08/2025 1 [facility] [id number] Talia P Kearing [id number] Talia P Kearing 02/15/2025 1 [facility]PPO[facility] Talia P Kearing [id number] Talia P Kearing Notes Date Note Type Note Provider Name and Address Organization Details Recorded Time 04/15/2022 text/html PT is here for a PE. SHe is doing very well, works in the [employer] business, does line dancinga nd ice skates/hockey. Does not want flu shot, got td today Alvina Rodas-Robyn reyes MA - [facility] 04/15/2022 11:15:06 06/29/2022 text/html Generic HPI TemplateReported bypatient.Notes:Rash for 2 months, now spreading from her chest to the abdomen, Using triamcinolone which helps with itching but otherwise very itchy. MAITE Almaguer [address] [address], [place], [address], [facility] 06/29/2022 11:17:44 04/19/2023 text/html Talia Ramírez is a 67 year old F who presented to the clinic for her annual exam. 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 Complaints: none Is not using ASA.OTC/Herbal supplements use: MMV Gynecologic HistoryPatient's last menstrual period was several years ago, cannot rememberNo spottingContraception: menopauseDenies cysts, stds, fibroids, abnormal pap smears Obstetric HistoryGravida: 0Para: 0AB: 0Complications: Drug use: neverEtoh use: beer a few times a week, only with boyfriendtobacco use: neverspf/derm: Dental: every 6 monthsEye: once a yearDiet: regularActivity: plays evelio MARTINS MD [address], [address], [facility] 04/19/2023 12:08:00 01/08/2025 text/html Talia Ramírez is a 69 year old F who presented to the clinic for her annual exam. 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 Complaints: none Is not using ASA.OTC/Herbal supplements use: MMV Gynecologic HistoryPatient's last menstrual period was several years ago, cannot rememberNo spottingContraception: menopauseDenies cysts, stds, fibroids, abnormal pap smears Obstetric HistoryGravida: 0Para: 0AB: 0Complications: Drug use: neverEtoh use: beer a few times a week and weekend, only with boyfriendtobacco use: neverspf/derm: Dental: every 6 monthsEye: once a yearDiet: regularActivity: plays evelio MARTINS MD [address], [address], [facility] 01/08/2025 11:31:32 02/15/2025 text/html Rash/Skin LesionReported bypatient.Location[facility] Quality:not painful; not bleeding;itchy Severity:mild Duration:has noted for 2-3 weeks Context:no new detergents or skin products; no one else with similar rash; not scratching Alleviating Factors:nothing gives relief Associated Symptoms:no fever; no cold symptoms; no nausea; no vomiting; no diarrhea; no urinary symptoms; no chills; no fatigue; no change in weight Talia is a 69yr old F who presents for a pruritic rash between her breasts x2-3 weeks. Located on chest, Using triamcinolone which helps with itching but otherwise very itchy. CECELIA CUMMINGS [address] [facility] [address], [place], [address], [facility] 02/22/2025 13:15:51 OBGyn Episode No OBEpisode recorded.
== END 2025-02-26 10:57 | disposition home or self-care (01) ==
LOC: HO.SH 10:56
PROVIDERS: Visit Provider Student in an Organized Health Care Education/Training Program
DX: Z01.118 Encounter for examination of ears and hearing with other abnormal findings (principal); H90.3 Sensorineural hearing loss, bilateral
CPT/HCPCS: 92557; 92567